=== PATIENT | male | born 1940 | race Caucasian/White ===

== ENCOUNTER 2016-10-13 10:29 | Inpatient (IN) | payer MEDICARE ==
[2016-10-13 10:37] VITALS: BMI 24.4
[2016-10-13 11:59] LABS: BASO % 1.2 % (0.0-2.0); EOS % 0.1 % (0.0-4.0); HEMATOCRIT 45.4 % (35.0-51.0); LYMPH # 1.2 K/uL (1.0-4.3); LYMPH % 28.7 % (20.0-40.0); MEAN CELL VOLUME 75.7 fL (80.0-94.0); MEAN CORPUSCULAR HEMOGLOBIN 23.8 pg (27.0-31.0); MEAN CORPUSCULAR HGB CONC 31.4 g/dL (33.0-37.0); MEAN PLATELET VOLUME 8.1 fL (7.2-11.7); MONO # 0.4 K/uL (0.0-0.8); MONO % 10.8 % (0.0-10.0); NRBC % 0.2 % (0.0-2.0); WHITE BLOOD COUNT 4.1 K/uL (4.8-10.8)
--- NOTE | 2016-10-13 12:08 | CT ---
PROCEDURE: CT HEAD WITHOUT CONTRAST. HISTORY: syncope COMPARISON: None available. TECHNIQUE: Axial computed tomography images were obtained through the head/brain without intravenous contrast. Radiation dose: Total exam DLP = 1123.83 mGy-cm. This CT exam was performed using one or more of the following dose reduction techniques: Automated exposure control, adjustment of the mA and/or kV according to patient size, and/or use of iterative reconstruction technique. FINDINGS: HEMORRHAGE: No intracranial hemorrhage. BRAIN: Diffuse atrophy with prominence of the ventricles and sulci noted. No mass effect or edema. Intracranial atherosclerosis. Encephalomalacia within the left basal ganglia/caudate nucleus. VENTRICLES: No hydrocephalus. CALVARIUM: Unremarkable. PARANASAL SINUSES: Mucosal thickening of the ethmoid air cells. MASTOID AIR CELLS: Unremarkable as visualized. No inflammatory changes. OTHER FINDINGS: Minimal opacification within bilateral external auditory canals, likely cerumen. 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 Please note that MRI with diffusion imaging is more sensitive in the detection of acute ischemic event.
[2016-10-13 12:27] LABS: POTASSIUM 3.9 mmol/L (3.6-5.2)
[2016-10-13 12:30] LABS: BILIRUBIN,TOTAL 0.4 mg/dL (0.2-1.3); CALCIUM 7.9 mg/dl (8.6-10.4)
[2016-10-13 12:42] LABS: TROPONIN I 0.063 ng/mL (0.00-0.120)
--- NOTE | 2016-10-13 13:06 | RAD ---
PROCEDURE: CHEST RADIOGRAPH, 1 VIEW HISTORY: r/o infiltrate COMPARISON: None available. FINDINGS: LUNGS: Poor inspiration with low lung volumes, mild crowded bronchovascular markings and mild bibasilar atelectasis. PLEURA: No pneumothorax or pleural fluid seen. CARDIOVASCULAR: Heart size is upper limits of normal. OSSEOUS STRUCTURES: No significant abnormalities. VISUALIZED UPPER ABDOMEN: Normal. OTHER FINDINGS: None. IMPRESSION: Poor inspiration with low lung volumes, mild crowded bronchovascular markings and mild bibasilar atelectasis.
--- NOTE | 2016-10-13 13:18 | C.PDOC ---
History Of Present Illness 75 y/o male presents to the ED via ALS for evaluation s/p syncopal episode today. He states that he was standing when he suddenly woke up on the floor. Syncope was reportedly witnessed by several people. Patient denies any symptoms prior to episode. No chest pain or shortness of breath at any time. Patient is currently asymptomatic in the ED. He notes similar episode 6 months ago and states he did not seek medical attention at that time. Denies any fever, nausea , vomiting, headache, dizziness, vision changes, or other complaints. Chief Complaint (Nursing): Syncope History Per: Patient History/Exam Limitations: no limitations Onset/Duration Of Symptoms: Sudden Onset Current Symptoms Are (Timing): Better Number Of Syncopal Episodes: 1 Activity At Onset Of Symptoms: Standing Associated Symptoms Preceding Syncopal Episode: No Predromal Symptoms (Sudden Onset) Seizure Or Post-ictal Symptoms: None Fall Associated With With Symptoms: Yes Recent travel outside of the [place]: No Past Medical History Reviewed: Historical Data, Nursing Documentation, Vital Signs Vital Signs: Last Vital Signs Temp 98.1 F 10/13/16 15:46 Pulse 63 10/13/16 15:46 Resp 20 10/13/16 15:46 BP 145/71 10/13/16 15:46 Pulse Ox 97 10/13/16 15:46 - Medical History PMH: Seizures (x 1 6 months ago) Surgical History: No Surg Hx Family History: States: Unknown Family Hx - Social History Hx Tobacco Use: No Hx Alcohol Use: No Hx Substance Use: No - Immunization History Hx Tetanus Toxoid Vaccination: No Hx Influenza Vaccination: No Hx Pneumococcal Vaccination: No Review Of Systems Except As Marked, All Systems Reviewed And Found Negative. Constitutional: Negative for: Fever Eyes: Negative for: Vision Change Cardiovascular: Negative for: Chest Pain Respiratory: Negative for: Shortness of Breath Gastrointestinal: Negative for: Nausea, Vomiting Neurological: Positive for: Other (syncope). Negative for: Headache, Dizziness Physical Exam - Physical Exam Appears: Non-toxic, No Acute Distress Skin: Normal Color, Warm, Dry, No Ecchymosis Head: Atraumatic, Normacephalic, No Abrasion, No Laceration Eye(s): bilateral: Normal Inspection, PERRL, EOMI Nose: Normal, No Epistaxis Neck: Normal ROM, No Midline Cervical Tenderness, Supple Chest: Symmetrical, No Tenderness Cardiovascular: Rhythm Regular Respiratory: Normal Breath Sounds, No Rales, No Rhonchi, No Wheezing Gastrointestinal/Abdominal: Normal Exam, Soft, No Tenderness Back: Normal Inspection, No Vertebral Tenderness Extremity: Normal ROM, No Tenderness, No Deformity, No Swelling Extremity: Bilateral: Atraumatic Neurological/Psych: Oriented x3, Normal Speech, Normal Cognition, Normal Cranial Nerves (II-XII intact), Normal Motor, Normal Sensation Gait: Steady ED Course And Treatment - Laboratory Results Result Diagrams: 10/13/16 11:55 10/13/16 11:55 ECG: Interpreted By Me ECG Rhythm: Sinus Rhythm ECG Interpretation: Normal Interpretation Of ECG: normal axis, normal intervals Rate From EC (bpm) O2 Sat by Pulse Oximetry: 97 (ra) Pulse Ox Interpretation: Normal - Other Rad Chest X-Ray X-Ray: Viewed By Me, Read By Radiologist (Azar Johnson MD) Interpretation: IMPRESSION: Poor inspiration with low lung volumes, mild crowded bronchovascular markings and mild bibasilar atelectasis. - CT Scan/US CT Head Other Rad Studies (CT/US): Read By Radiologist (Saba Sethi MD), Radiology Report Reviewed CT/US Interpretation: FINDINGS: HEMORRHAGE: No intracranial hemorrhage. BRAIN : Diffuse atrophy with prominence of the ventricles and sulci noted. No mass effect or edema. Intracranial atherosclerosis. Encephalomalacia within the left basal ganglia/caudate nucleus. VENTRICLES: No hydrocephalus. CALVARIUM: Unremarkable. PARANASAL SINUSES: Mucosal thickening of the ethmoid air cells. MASTOID AIR CELLS: Unremarkable as visualized. No inflammatory changes. OTHER FINDINGS: Minimal opacification within bilateral external auditory canals, likely cerumen. 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 Please note that MRI with diffusion imaging is more sensitive in the detection of acute ischemic event. Progress Note: CT Head, CXR, EKG, Blood Work, Urinalysis. Disposition - Disposition Disposition: HOSPITALIZED Disposition Time: 13:45 Condition: STABLE - Clinical Impression Clinical Impression: Syncope - Scribe Statement The provider has reviewed the documentation as recorded by the Scribe (Mary Wynn) Provider Attestation: All medical record entries made by the Scribe were at my direction and personally dictated by me. I have reviewed the chart and agree that the record accurately reflects my personal performance of the history, physical exam, medical decision making, and the department course for this patient. I have also personally directed, reviewed, and agree with the discharge instructions and disposition.
[2016-10-13 14:32] LABS: RBC URINE 2 /hpf (0-3); URINE BACTERIA RARE (<OCC); URINE BILIRUBIN NEGATIVE (NEGATIVE); URINE BLOOD 1+ (NEGATIVE); URINE COLOR Yellow (YELLOW); URINE GLUCOSE (UA) NORMAL (Normal); URINE KETONE NEGATIVE (NEGATIVE); URINE LEUKOCYTE ESTERASE NEG Leu/uL (Negative); URINE PROTEIN 2+ mg/dL (NEGATIVE); URINE UROBILINOGEN NORMAL mg/dL (0.2-1.0); WBC URINE 1 /hpf (0-5)
[2016-10-13] MEDS ORDERED: guaiFENesin 100 mg/5 ml Syrup UD PO PRN (19:02)
[2016-10-13] MEDS: (Novolin R) Insulin Human Regular 100 units/ml vial SC SCH (21:44)
[2016-10-14] MEDS: (Novolin R) Insulin Human Regular 100 units/ml vial SC SCH ×4 (08:21→21:16)
--- NOTE | 2016-10-14 10:26 | CON ---
DATE: 10/14/2016 REASON FOR CONSULTATION: Episode of passing out. HISTORY OF PRESENT ILLNESS: The patient is a 75-year-old male who is being asked for evaluation of e pisode of passing out. The patient said he was standing and having his tea and croissant in a restau rant in hotel when all of a sudden he found himself on the floor. He does not remember what happened . He did not have any chest pain, palpitation or headaches prior to passing out. He has no urinary incontinence or tongue biting. He said a similar episode happened about 6 months ago. He did not se ek any medical attention at that time. Denies any other complaints. REVIEW OF SYSTEMS: Denies any headache, dizziness, chest pain, shortness of breath, abdominal pain, constipation, diarrhea, dysuria, pyuria, cough or sputum production. PAST MEDICAL HISTORY: Includes diabetes mellitus. MEDICATIONS: At home include Isordil, Glucophage, aspirin. ALLERGIES: No known drug allergies. SOCIAL HISTORY: Denies smoking, use of alcohol or illicit drugs. FAMILY HISTORY: Reviewed and noncontributory to case. PHYSICAL EXAMINATION: GENERAL: The patient is an elderly pleasant male lying on the bed, in no acute distress. VITAL SIGNS: His blood pressure is 146/68, heart rate is 54 per minute, breathing at a rate of 16 pe r minute, temperature is 98 degrees Fahrenheit. HEENT: Head is normocephalic, atraumatic. NECK: Supple. There are no carotid bruits. LUNGS: Clear. CARDIOVASCULAR: S1, S2 audible. No murmurs. ABDOMEN: Soft, nontender, bowel sounds are present. NEUROLOGIC EXAMINATION: MENTAL STATUS: The patient is awake, alert, oriented to time, place, person. Speech is fluent. Nam ing and repetition normal. Memory and cognition are intact. CRANIAL NERVES: Pupils are 4 mm bilaterally, reactive to light. Visual ramos are full. Extraocula r movements are intact. There is no facial asymmetry. Palate is upgoing bilaterally and tongue is m idline. MOTOR: Tone is normal. Power is 5/5 bilaterally in all extremities. Reflexes +1 and symmetrical. Plantars downgoing bilaterally. LABORATORY DATA: Labs reviewed, shows WBC of 4.1, hemoglobin 14.3, hematocrit 45.4 and platelets of 185. Sodium is 135, potassium 3.9, chloride 99, carbon dioxide content 24, BUN of 51, creatinine of 1.8 and glucose of 202. He has had a CT scan of the head done which shows encephalomalacia within th e left basal ganglia/caudate nucleus. Otherwise, unremarkable CT scan of the head. IMPRESSION: Syncope, rule out seizure versus cardiac arrhythmia. RECOMMENDATIONS: 1. The patient to have MRI of the brain without contrast. 2. The encephalomalacia in the basal ganglia appears to be from old stroke. Agree with using aspiri n for now. 3. The patient to have an electroencephalogram. 4. The patient to have cardiac monitoring to rule out any cardiac arrhythmias. 5. If patient is discharged, then EEG may be done as outpatient. Thank you for the opportunity to participate in the care of this patient. Geoff Jiménez MD cc: [id number] TT: 10/14/2016 10:25:43 Confirmation # [id number] Dictation # [id number] robert
[2016-10-14] MEDS: Azithromycin 500 MG in Sodium Chloride 0.9% 250 ML IVPB SCH (10:50)
[2016-10-14] MEDS: Sodium Chloride 0.9% 1,000 ML IV SCH ×2 (10:51→22:51)
--- NOTE | 2016-10-14 12:38 | MRI ---
PROCEDURE: MRI BRAIN WITHOUT CONTRAST HISTORY: syncope COMPARISON: Comparison made with CT scan of the brain 10/13/2016. TECHNIQUE: Multiplanar, multisequence MR images of the brain were obtained without intravenous contrast enhancement. FINDINGS: HEMORRHAGE: No acute parenchymal, subarachnoid nor extra-axial hemorrhage. No hemosiderin deposition identified on diffusion-weighted sequence. DWI: No evidence of an acute or early subacute infarction. BRAIN PARENCHYMA: Re- demonstrated is a chronic appearing infarct along the anterior margin of the left putamen with what appears represent some involvement of the superior aspect of the left caudate head. Moderate generalized volume loss VENTRICLES: Ex vacuo dilatation of the ventricles due to volume loss however no evidence of obstructive hydrocephalus. CRANIUM: Unremarkable. ORBITS: Orbits and contents grossly unremarkable. PARANASAL SINUSES/MASTOIDS: Mild mucosal thickening again seen within the ethmoid air complex extending superiorly into the frontal sinus. Minor mucosal thickening both maxillary antra left greater than right. And sphenoid sinuses partial opacification of 1 or 2 left inferior posterior mastoid air cells. . There also also appears to be some minor opacification of multiple right mastoid air cells. VASCULAR SYSTEM: Visualized major vascular flow voids at skull base are patent. OTHER FINDINGS: None. IMPRESSION: No acute intracranial hemorrhage or infarct. 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 Moderate generalized volume loss.
--- NOTE | 2016-10-14 13:30 | CARD ---
APPROVED REPORT EXAM: Two-dimensional and M-mode echocardiogram with Doppler and color Doppler. Other Information Quality : AverageRhythm : NSR INDICATION Syncope M-Mode DIMENSIONS RVDd1.85 (2.1-3.2cm)Left Atrium (MM)3.44 (2.5-4.0cm) IVSd1.30 (0.7-1.1cm)Aortic Root3.44 (2.2-3.7cm) LVDd5.01 (4.0-5.6cm)Aortic Cusp Exc.1.37 (1.5-2.0cm) PWd1.17 (0.7-1.1cm)FS (%) 42 % LVDs2.93 (2.0-3.8cm)LVEF (%)72 (>50%) Mitral Valve MV E Jmigykub78.7cm/sMV A Wtzeprxp99.1cm/sE/A ratio0.7 TDI E/Lateral E'0.0E/Medial E'0.0 Tricuspid Valve TR Peak Nnlqsgss994qc/sTR Peak Gr.69mdNrFFEQ78gyMn LEFT VENTRICLE The left ventricle is normal size. There is normal left ventricular wall thickness. The left ventricular function is normal. The left ventricular ejection fraction is within the normal range. No regional wall motion abnormalities noted. Transmitral Doppler flow pattern is Grade I-abnormal relaxation pattern. No left ventricle thrombus noted on this study. There is no ventricular septal defect visualized. There is no left ventricular aneurysm. There is no mass noted in the left ventricle. RIGHT VENTRICLE The right ventricle is normal size. There is normal right ventricular wall thickness. The right ventricular systolic function is normal. ATRIA The left atrium size is normal. The right atrium size is normal. The interatrial septum is intact with no evidence for an atrial septal defect. AORTIC VALVE The aortic valve is normal in structure and function. There is mild aortic regurgitation. There is no aortic valvular stenosis. There is no aortic valvular vegetation. MITRAL VALVE The mitral valve is normal in structure and function. Mitral annular calcification is mild. There is no evidence of mitral valve prolapse. There is no mitral valve stenosis. There is no mitral valve regurgitation noted. TRICUSPID VALVE The tricuspid valve is normal in structure and function. There is mild tricuspid regurgitation. Right ventricular systolic pressure is estimated at 30-40 mmHg. There is no tricuspid valve prolapse or vegetation. There is no tricuspid valve stenosis. PULMONIC VALVE The pulmonary valve is normal in structure and function. There is no pulmonic valvular regurgitation. There is no pulmonic valvular stenosis. GREAT VESSELS The aortic root is normal in size. The ascending aorta is normal in size. The pulmonary artery is normal. The IVC is normal in size and collapses >50% with inspiration. PERICARDIAL EFFUSION The pericardium appears normal. There is no pleural effusion. <Conclusion> The left ventricular function is normal. The left ventricular ejection fraction is within the normal range. No regional wall motion abnormalities noted. There is mild aortic regurgitation. There is mild tricuspid regurgitation. Right ventricular systolic pressure is estimated at 30-40 mmHg.
--- NOTE | 2016-10-14 18:20 | CP.PCM.CON ---
History of Present Illness - History of Present Illness History of Present Illness: Reason For Consultation Syncope History Of Present Illness 75 y/o male presents to the ED via ALS for evaluation s/p syncopal episode today. He states that he was standing when he suddenly woke up on the floor. Syncope was reportedly witnessed by several people. He notes similar episode 6 months ago and states he did not seek medical attention at that time. Denies any fever, nausea, vomiting, headache, dizziness, vision changes, or other complaints. Chief Complaint (Nursing): Syncope History Per: Patient History/Exam Limitations: no limitations Onset/Duration Of Symptoms: Sudden Onset Current Symptoms Are (Timing): Better Number Of Syncopal Episodes: 1 Activity At Onset Of Symptoms: Standing Associated Symptoms Preceding Syncopal Episode: No Predromal Symptoms (Sudden Onset) Seizure Or Post-ictal Symptoms: None Fall Associated With With Symptoms: Yes Recent travel outside of the [place]: No - Medical History PMH: Seizures (x 1 6 months ago) Surgical History: No Surg Hx Family History: States: Unknown Family Hx - Social History Hx Tobacco Use: No Hx Alcohol Use: No Hx Substance Use: No - Immunization History Hx Tetanus Toxoid Vaccination: No Hx Influenza Vaccination: No Hx Pneumococcal Vaccination: No Review Of Systems Except As Marked, All Systems Reviewed And Found Negative. Constitutional: Negative for: Fever Eyes: Negative for: Vision Change Cardiovascular: Negative for: Chest Pain Respiratory: Negative for: Shortness of Breath Gastrointestinal: Negative for: Nausea, Vomiting Neurological: Positive for: Other (syncope). Negative for: Headache, Dizziness Physical Exam - Physical Exam Appears: Non-toxic, No Acute Distress Skin: Normal Color, Warm, Dry, No Ecchymosis Head: Atraumatic, Normacephalic, No Abrasion, No Laceration Eye(s): bilateral: Normal Inspection, PERRL, EOMI Nose: Normal, No Epistaxis Neck: Normal ROM, No Midline Cervical Tenderness, Supple Chest: Symmetrical, No Tenderness Cardiovascular: Rhythm Regular Respiratory: Normal Breath Sounds, No Rales, No Rhonchi, No Wheezing Gastrointestinal/Abdominal: Normal Exam, Soft, No Tenderness Back: Normal Inspection, No Vertebral Tenderness Extremity: Normal ROM, No Tenderness, No Deformity, No Swelling Extremity: Bilateral: Atraumatic Neurological/Psych: Oriented x3, Normal Speech, Normal Cognition, Normal Cranial Nerves (II-XII intact), Normal Motor, Normal Sensation Gait: Steady Past Patient History - Past Medical History & Family History Past Medical History?: Yes - Past Social History Smoking Status: Former Smoker - CARDIAC Hx Cardiac Disorders: No - PULMONARY Hx Respiratory Disorders: No - NEUROLOGICAL Hx Neurological Disorder: Yes Hx Seizures: Yes (x 1 6 months ago) - HEENT Hx HEENT Problems: No - RENAL Hx Chronic Kidney Disease: No - ENDOCRINE/METABOLIC Hx Endocrine Disorders: Yes Hx Diabetes Mellitus Type 2: Yes - HEMATOLOGICAL/ONCOLOGICAL Hx Blood Disorders: No - INTEGUMENTARY Hx Dermatological Problems: Yes Other/Comment: several skin tags on back - MUSCULOSKELETAL/RHEUMATOLOGICAL Hx Musculoskeletal Disorders: Yes Hx Falls: Yes (prev. syncopal episodes) Other/Comment: L knee pain when ambulating - GASTROINTESTINAL Hx Gastrointestinal Disorders: No - GENITOURINARY/GYNECOLOGICAL Hx Genitourinary Disorders: No - PSYCHIATRIC Hx Psychophysiologic Disorder: No Hx Substance Use: No - SURGICAL HISTORY Hx Surgeries: Yes Hx Cardiac Catheterization: Yes (3 stents) - ANESTHESIA Hx Anesthesia: No Meds Allergies/Adverse Reactions: Allergies Allergy/AdvReac Type Severity Reaction Status Date / Time No Known Allergies Allergy Verified 10/13/16 10:35 - Medications Medications: Current Medications Aspirin (Ecotrin) 81 mg PO DAILY [facility] Last Admin: 10/14/16 09:26 Dose: 81 mg Heparin Sodium (Porcine) (Heparin) 5,000 units SC Q12 [facility] Last Admin: 10/14/16 09:28 Dose: 5,000 units Sodium Chloride (Sodium Chloride 0.9%) 1,000 mls @ 80 mls/hr IV .[id number] [facility] Last Admin: 10/14/16 10:51 Dose: 80 mls/hr Azithromycin 500 mg/ Sodium (Chloride) 250 mls @ 167 mls/hr IVPB Q24H [facility] Last Admin: 10/14/16 10:50 Dose: 167 mls/hr Insulin Human Regular (Novolin R) 0 unit SC ACHS [facility] PRN Reason: Protocol Last Admin: 10/14/16 13:06 Dose: 2 unit Isosorbide Dinitrate (Isordil) 5 mg PO BID [facility] Last Admin: 10/14/16 10:50 Dose: 5 mg Pneumococcal Polyvalent Vaccine (Pneumovax 23 Vaccine) 0.5 ml IM .ONCE ONE Stop: 10/15/16 10:01 Results - Vital Signs Recent Vital Signs: Last Vital Signs Temp 98.1 F 10/14/16 15:44 Pulse 57 L 10/14/16 16:39 Resp 20 10/14/16 15:44 BP 128/67 10/14/16 15:44 Pulse Ox 95 10/14/16 15:44 - Labs Result Diagrams: 10/13/16 11:55 10/13/16 11:55 Labs: Laboratory Results - last 24 hr 10/13/16 10/13/16 10/14/16 19:34 21:37 02:00 POC Glucose (mg/dL) 201 H Total Creatine Kinase 177 H 163 CK-MB (Mass) 2.89 2.97 Troponin I, Quant 0.0510 0.0490 10/14/16 10/14/16 10/14/16 06:02 11:00 16:54 POC Glucose (mg/dL) 177 H 247 H 219 H Total Creatine Kinase CK-MB (Mass) Troponin I, Quant Assessment & Plan (1) Syncope Assessment and Plan: R/O Orthostatic hypotension, Structural diseases ECHO: Normal EF and no major valve issues cardiac enzymes negative Check Carotid and Tilt Dr. Orozco to perform Tilt table test Status: Acute (2) CAD (coronary artery disease) Assessment and Plan: H/O CAD and stents as per the patient Stress test on Sunday Status: Acute
[2016-10-15] MEDS: Sodium Chloride 0.9% 1,000 ML IV SCH ×2 (06:17→23:37)
[2016-10-15 06:19] LABS: BASO % 0.5 % (0.0-2.0); EOS # 0.1 K/uL (0.0-0.7); EOS % 2.2 % (0.0-4.0); HEMATOCRIT 41.9 % (35.0-51.0); LYMPH # 1.6 K/uL (1.0-4.3); LYMPH % 49.1 % (20.0-40.0); MEAN CELL VOLUME 75.8 fL (80.0-94.0); MEAN CORPUSCULAR HEMOGLOBIN 23.8 pg (27.0-31.0); MEAN CORPUSCULAR HGB CONC 31.3 g/dL (33.0-37.0); MEAN PLATELET VOLUME 8.2 fL (7.2-11.7); MONO # 0.3 K/uL (0.0-0.8); MONO % 9.7 % (0.0-10.0); NRBC % 0.1 % (0.0-2.0); RED CELL DISTRIBUTION WIDTH 16.8 % (11.5-14.5); WHITE BLOOD COUNT 3.3 K/uL (4.8-10.8)
[2016-10-15 06:35] LABS: CHLORIDE 103 mmol/L (98-107); SODIUM 139 mmol/L (132-148)
[2016-10-15 06:38] LABS: CARBON DIOXIDE 26 mmol/L (22-30); GFR AFRICAN-AMERICAN > 60
[2016-10-15 06:39] LABS: BLOOD UREA NITROGEN 30 mg/dL (9-20); GLUCOSE,RANDOM 158 mg/dL (75-110)
[2016-10-15] MEDS: (Novolin R) Insulin Human Regular 100 units/ml vial SC SCH ×3 (08:22→19:26)
[2016-10-15] MEDS ORDERED: Pneumococcal 23-Valent Vaccine IM ONE (10:00)
[2016-10-15] MEDS: Azithromycin 500 MG in Sodium Chloride 0.9% 250 ML IVPB SCH (13:45)
--- NOTE | 2016-10-15 20:28 | CP.PCM.PN ---
Subjective - Date & Time of Evaluation Date of Evaluation: 10/15/16 Time of Evaluation: 10:20 - Subjective Subjective: Patient for stress test and Tilt test in am NPO after MN except meds Objective - Vital Signs/Intake and Output Vital Signs (last 24 hours): Temp Pulse Resp BP Pulse Ox 97.9 F 56 L 20 147/71 98 10/15/16 16:01 10/15/16 16:01 10/15/16 16:01 10/15/16 16:01 10/15/16 16:01 - Medications Medications: Current Medications Aspirin (Ecotrin) 81 mg PO DAILY [facility] Last Admin: 10/15/16 09:13 Dose: 81 mg Heparin Sodium (Porcine) (Heparin) 5,000 units SC Q12 [facility] Last Admin: 10/15/16 09:13 Dose: 5,000 units Sodium Chloride (Sodium Chloride 0.9%) 1,000 mls @ 80 mls/hr IV .[id number] [facility] Last Admin: 10/15/16 06:17 Dose: 80 mls/hr Azithromycin 500 mg/ Sodium (Chloride) 250 mls @ 167 mls/hr IVPB Q24H [facility] Last Admin: 10/15/16 13:45 Dose: 167 mls/hr Insulin Human Regular (Novolin R) 0 unit SC ACHS [facility] PRN Reason: Protocol Last Admin: 10/15/16 19:26 Dose: 1 unit Isosorbide Dinitrate (Isordil) 5 mg PO BID [facility] Last Admin: 10/15/16 18:54 Dose: 5 mg - Labs Labs: 10/15/16 06:00 10/15/16 06:00 Assessment and Plan (1) Syncope Status: Acute (2) CAD (coronary artery disease) Status: Acute
--- NOTE | 2016-10-16 07:14 | HP ---
The patient is a 75-year-old male admitted to the hospital with chief complaint of syncope. The shilpa ent was standing in a restaurant, fell down to the floor, loss of conscious. No precipitating sympto ms. No biting of the tongue. No urinary or fecal incontinence. The patient had a similar episode 6 months ago when he was in [place]. The patient had stents a few years back. PHYSICAL EXAMINATION: GENERAL: The patient is awake, alert, oriented. VITAL SIGNS: Temperature 98, pulse 90. HEENT: Within normal limits. NECK: Supple. CHEST: Symmetrical. HEART: Regular. ABDOMEN: Soft. EXTREMITIES: No edema. The patient suffers from syncopal episode, rule out cardiac arrhythmia, rule out bedrest, cardi ac monitoring, cardiology evaluation. Yunior Luna MD cc: [id number] TT: 10/15/2016 09:00:24 en
--- NOTE | 2016-10-16 07:27 | PN ---
DATE: 10/15/2016 The patient is getting supportive care. No syncope. For tilt table test tomorrow. Yunior Luna MD cc: [id number] TT: 10/15/2016 15:51:00 Confirmation # [id number] Dictation # [id number] en
[2016-10-16] MEDS: (Novolin R) Insulin Human Regular 100 units/ml vial SC SCH ×5 (07:40→21:31)
--- NOTE | 2016-10-16 10:57 | CP.PCM.PN ---
Subjective - Date & Time of Evaluation Date of Evaluation: 10/16/16 Time of Evaluation: 10:00 - Subjective Subjective: Medicine Note- Dr. Garland's service Patient was seen and examined at bedside. Patient reported no acute complaints, no events overnight, per nursing. Objective - Vital Signs/Intake and Output Vital Signs (last 24 hours): Temp Pulse Resp BP Pulse Ox 98.3 F 63 18 163/74 H 96 10/16/16 07:05 10/16/16 07:05 10/16/16 07:05 10/16/16 07:05 10/16/16 07:05 - Medications Medications: Current Medications Aspirin (Ecotrin) 81 mg PO DAILY [facility] Last Admin: 10/15/16 09:13 Dose: 81 mg Heparin Sodium (Porcine) (Heparin) 5,000 units SC Q12 [facility] Last Admin: 10/15/16 21:26 Dose: 5,000 units Sodium Chloride (Sodium Chloride 0.9%) 1,000 mls @ 80 mls/hr IV .[id number] [facility] Last Admin: 10/15/16 23:37 Dose: 80 mls/hr Azithromycin 500 mg/ Sodium (Chloride) 250 mls @ 167 mls/hr IVPB Q24H [facility] Last Admin: 10/15/16 13:45 Dose: 167 mls/hr Insulin Human Regular (Novolin R) 0 unit SC ACHS [facility] PRN Reason: Protocol Last Admin: 10/16/16 07:40 Dose: 1 unit Isosorbide Dinitrate (Isordil) 5 mg PO BID [facility] Last Admin: 10/15/16 18:54 Dose: 5 mg - Constitutional Appears: Non-toxic, No Acute Distress - Head Exam Head Exam: ATRAUMATIC, NORMAL INSPECTION, NORMOCEPHALIC - Eye Exam Pupil Exam: Fixed, NORMAL ACCOMODATION - ENT Exam ENT Exam: Mucous Membranes Moist - Respiratory Exam Respiratory Exam: Clear to Ausculation Bilateral, NORMAL BREATHING PATTERN. absent: Prolonged Expiratory Phase, Rales, Rhonchi, Wheezes - Cardiovascular Exam Cardiovascular Exam: REGULAR RHYTHM, +S1, +S2 - GI/Abdominal Exam GI & Abdominal Exam: Soft, Normal Bowel Sounds. absent: Tenderness, Diminished Bowel Sounds, Hypoactive Bowel Sounds - Extremities Exam Extremities Exam: Normal Capillary Refill, Normal Inspection - Neurological Exam Neurological Exam: Alert, Awake, Oriented x3 - Psychiatric Exam Psychiatric exam: Normal Affect, Normal Mood - Skin Skin Exam: Dry, Intact, Normal Color, Warm Assessment and Plan - Assessment and Plan (Free Text) Assessment: Syncope Consult Cardio- Dr. Robledo Consult Neuro- Dr. 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 Moderate generalized volume loss. Abnormal CXR CXR- 10/13/16- Poor inspiration with low lung volumes, mild crowded bronchovascular markings and mild bibasilar atelectasis. Continue Azithromycin 500mg IVPB Q24h (started 10/14/16) Diabetes RISS accucheck Prophylactic Measure Heparin 5000U SC Q12h Pepcid 20mg PO BID SCDs PT Eval
[2016-10-16] MEDS: Azithromycin 500 MG in Sodium Chloride 0.9% 250 ML IVPB SCH (12:55)
--- NOTE | 2016-10-16 14:44 | VASCLAB ---
PROCEDURE: HISTORY: syncope COMPARISON: None available. TECHNIQUE: Grayscale and duplex Doppler evaluation of the cervical carotid and vertebral arteries were performed. The common carotid, carotid bifurcations and cervical Internal Carotid Artery (ICA) and proximal External Carotid Artery (ECA) were evaluated. The vertebral arteries were evaluated for gross patency and flow direction. Report prepared by Melba Oquendo RDCS, S FINDINGS: RIGHT CAROTID ARTERIES: 1. Common Carotid Artery: No significant focal plaque formation of the right common carotid artery. Maximum Peak Systolic velocity: 73 cm/sec: End-diastolic velocity 0 cm/sec. 2. Carotid Bifurcation: plaque formation. Maximum Peak Systolic velocity: 32 cm/sec: End-diastolic velocity 0 cm/sec. 3. Internal Carotid Artery: Plaque description: 3.1. Proximal Segment: Peak systolic velocity 25 cm/sec: End-diastolic velocity 6 cm/sec - % stenosis 3.2. Middle Segment: Peak systolic velocity 43 cm/sec: End-diastolic velocity 10 cm/sec - % stenosis 3.3. Distal Segment: Peak systolic velocity 42 cm/sec: End-diastolic velocity 10 cm/sec - % stenosis 4. External Carotid Artery: No significant focal plaque formation. Peak systolic velocity 68 cm/sec 5. ICA/CCA Ratio: 0.7 LEFT CAROTID ARTERIES: 1. Common Carotid Artery: No significant focal plaque formation of the left common carotid artery. Maximum Peak Systolic velocity: 94 cm/sec: End-diastolic velocity 0 cm/sec. 2. Carotid Bifurcation: plaque formation. Maximum Peak Systolic velocity: 61 cm/sec: End-diastolic velocity 13 cm/sec. 3. Internal Carotid Artery: Plaque description: 3.1. Proximal Segment: Peak systolic velocity 58 cm/sec: End-diastolic velocity 11 cm/sec - % stenosis 3.2. Middle Segment: Peak systolic velocity 51 cm/sec: End-diastolic velocity 11 cm/sec - % stenosis 3.3. Distal Segment: Peak systolic velocity 64 cm/sec: End-diastolic velocity 11 cm/sec - % stenosis 4. External Carotid Artery: No significant focal plaque formation. Peak systolic velocity 89 cm/sec 5. ICA/CCA Ratio: 0.9 VERTEBRAL ARTERIES: 1. Right Vertebral Artery: The right vertebral artery flow direction is antegrade. 2. Left Vertebral Artery: The left vertebral artery flow direction is antegrade. OTHER FINDINGS: 1. Right Brachial Blood pressure: 132 mmHg. 2. Left Brachial Blood pressure: 126 mmHg. IMPRESSION: RIGHT: Duplex scan does not suggest hemodynamically significant stenosis of the right extracranial carotid arteries. LEFT: Duplex scan does not suggest hemodynamically significant stenosis of the left extracranial carotid arteries.
[2016-10-16] MEDS: Sodium Chloride 0.9% 1,000 ML IV SCH (16:40)
--- NOTE | 2016-10-16 20:59 | CARD ---
APPROVED REPORT Protocol: PHARMACOLOGICAL Test Type: LEXISCAN Test Indications: SYNCOPE Target HR: 144 bpm Resting ECG: normal Resting Heart Rate: 63 bpm Resting Blood Pressure: 118/78mmHg submaximum (85%): 122 bpm TEST SUMMARY [id number].08:[id number]/78.0. INFUSIONDOSE 100:300.00.01.066/.0. [id number]/78.0. PROCEDURE Pharmacologic stress testing was performed using 0.4mg per 5ml of regadenoson given intravenously over 7-10 seconds. POST EXERCISE Reason for Termination: LEXISCAN FUSION ENDED Target HR: No Max HR: 66 bpm 66% of Maximum Predicted HR: 144 bpm Exercise duration: 00:30 min:sec, 0 Stage Exercise capacity: 1.0METs Max Blood Pressure: 120/78mmHg Chest Pain: Yes, Angina index: 0 Arrhythmia: Yes, ST Change: Yes, Deviation: 0 mm INTERPRETATION Stress EKG Conclusion: NL LovejuiceISCAN NUCLEAR PENDING 120 EXAM: Myocardial Perfusion STRESS/REST Imaging Protocol The imaging protocol used to acquire images was Stress Tc-99m/rest Tc-99m 1 day Rest Spect myocardial perfusion imaging was performed in supine position 45 minutes following the injection of 32.4 mCi of Tc-99 Myoview. Gated Stress Spect was performed 45 minutes after intravenous 12.8 mCi Tc-99 Myoview injection. The images were gated to evaluate regional wall motion and calculate ventricular ejection fraction.Images were reconstructed using backfilter projection method in short horizontal and verticle long axis. Spect slices were generated. RESTING DATA LCC761.83raFK9.90L/min ESV37.00mlMyocardial Siou300.00g Av. Heart Rate56.00bpm EF65.00% STRESS DATA GHC797.78xvRW9.70L/min ESV40.00mlMyocardial Atnr248.00g EF63.00% Regional WT score at stress:0.00 Regional WM score at stress:0.00 Summed WT score at stress:13.00 Av. Heart Rate67.00bpmSummed WM score at stress:0.00 LV Perf. Quant 17 Seg. SSS0.00 17 Seg. SRS1.00 17 Seg. SDS0.00 Stress Defect Extent (% LAD)0.00Rest Defect Extent (% LAD)0.00Rev. Defect Extent (% LAD)0.00 Stress Defect Extent (% LCX)0.00Rest Defect Extent (% LCX)7.50Rev. Defect Extent (% LCX)0.00 Stress Defect Extent (% RCA)0.00Rest Defect Extent (% RCA)0.00Rev. Defect Extent (% RCA)0.00 Stress Defect Extent (% MILA)0.00Rest Defect Extent (% MILA)1.70Rev. Defect Extent (% MILA)0.00 Other Information Quality:Good Overall Exercise Capacity: Good IMPRESSION Normal Myocardial Perfusion exercise stress study Global LV Function: Normal Stress Test Summary: Normal LV Perfusion Summary: Normal Metabolism/Perfusion There are no defects. Conclusion 1. The stress and resting images show normal perfusion.
--- NOTE | 2016-10-16 22:41 | CP.PCM.PN ---
Subjective - Date & Time of Evaluation Date of Evaluation: 10/16/16 Time of Evaluation: 20:30 - Subjective Subjective: Patient stress test, Tilt, carotids and ECHO unremarkable Eiology of syncope unclear Will do cardiac cath (Patient h/o of multiple stents) Review Of Systems Except As Marked, All Systems Reviewed And Found Negative. Constitutional: Negative for: Fever Eyes: Negative for: Vision Change Cardiovascular: Negative for: Chest Pain Respiratory: Negative for: Shortness of Breath Gastrointestinal: Negative for: Nausea, Vomiting Neurological: Positive for: Other (syncope). Negative for: Headache, Dizziness Physical Exam - Physical Exam Appears: Non-toxic, No Acute Distress Skin: Normal Color, Warm, Dry, No Ecchymosis Head: Atraumatic, Normacephalic, No Abrasion, No Laceration Eye(s): bilateral: Normal Inspection, PERRL, EOMI Nose: Normal, No Epistaxis Neck: Normal ROM, No Midline Cervical Tenderness, Supple Chest: Symmetrical, No Tenderness Cardiovascular: Rhythm Regular Respiratory: Normal Breath Sounds, No Rales, No Rhonchi, No Wheezing Gastrointestinal/Abdominal: Normal Exam, Soft, No Tenderness Back: Normal Inspection, No Vertebral Tenderness Extremity: Normal ROM, No Tenderness, No Deformity, No Swelling Extremity: Bilateral: Atraumatic Neurological/Psych: Oriented x3, Normal Speech, Normal Cognition, Normal Cranial Nerves (II-XII intact), Normal Motor, Normal Sensation Gait: Steady Past Patient History Objective - Vital Signs/Intake and Output Vital Signs (last 24 hours): Temp Pulse Resp BP Pulse Ox 97.7 F 62 20 158/66 H 96 10/16/16 15:09 10/16/16 15:30 10/16/16 15:09 10/16/16 15:09 10/16/16 15:09 - Medications Medications: Current Medications Aspirin (Ecotrin) 81 mg PO DAILY [facility] Last Admin: 10/16/16 12:55 Dose: 81 mg Famotidine (Pepcid) 20 mg PO BID [facility] Last Admin: 10/16/16 17:26 Dose: 20 mg Heparin Sodium (Porcine) (Heparin) 5,000 units SC Q12 [facility] Last Admin: 10/16/16 21:32 Dose: 5,000 units Sodium Chloride (Sodium Chloride 0.9%) 1,000 mls @ 80 mls/hr IV .[id number] [facility] Last Admin: 10/16/16 16:40 Dose: 80 mls/hr Azithromycin 500 mg/ Sodium (Chloride) 250 mls @ 167 mls/hr IVPB Q24H [facility] Last Admin: 10/16/16 12:55 Dose: 167 mls/hr Insulin Human Regular (Novolin R) 0 unit SC ACHS [facility] PRN Reason: Protocol Last Admin: 10/16/16 21:31 Dose: Not Given Isosorbide Dinitrate (Isordil) 5 mg PO BID [facility] Last Admin: 10/16/16 17:26 Dose: 5 mg Assessment and Plan - Assessment and Plan (Free Text) Assessment: (1) Syncope Assessment and Plan: R/O Orthostatic hypotension, Structural diseases ECHO: Normal EF and no major valve issues cardiac enzymes negative Tilt and ECHO unremarkable (2) CAD (coronary artery disease) Assessment and Plan: H/O CAD and stents as per the patient Stress test on Sunday Status: Acute
[2016-10-17] MEDS: Sodium Chloride 0.9% 1,000 ML IV SCH ×2 (06:12→21:05)
[2016-10-17 06:47] LABS: BASO % 0.3 % (0.0-2.0); EOS # 0.1 K/uL (0.0-0.7); EOS % 3.3 % (0.0-4.0); HEMATOCRIT 40.4 % (35.0-51.0); LYMPH # 1.4 K/uL (1.0-4.3); LYMPH % 43.5 % (20.0-40.0); MEAN CELL VOLUME 75.2 fL (80.0-94.0); MEAN CORPUSCULAR HGB CONC 31.9 g/dL (33.0-37.0); MEAN PLATELET VOLUME 8.3 fL (7.2-11.7); MONO # 0.3 K/uL (0.0-0.8); MONO % 9.5 % (0.0-10.0); NRBC % 0.2 % (0.0-2.0); RED CELL DISTRIBUTION WIDTH 16.8 % (11.5-14.5); WHITE BLOOD COUNT 3.2 K/uL (4.8-10.8)
[2016-10-17 06:52] LABS: CHLORIDE 103 mmol/L (98-107)
[2016-10-17 06:53] LABS: POTASSIUM 3.7 mmol/L (3.6-5.2); SODIUM 139 mmol/L (132-148)
[2016-10-17 06:55] LABS: ALKALINE PHOSPHATASE 53 U/L (38-126); AST/SGOT 35 U/L (17-59); BILIRUBIN,TOTAL 0.8 mg/dL (0.2-1.3); BLOOD UREA NITROGEN 12 mg/dL (9-20); CARBON DIOXIDE 28 mmol/L (22-30); GFR AFRICAN-AMERICAN > 60; GLUCOSE,RANDOM 155 mg/dL (75-110); TOTAL PROTEIN 6.4 g/dL (6.3-8.3)
[2016-10-17 06:56] LABS: ALT/SGPT 28 U/L (21-72); CALCIUM 7.6 mg/dl (8.6-10.4)
[2016-10-17] MEDS: (Novolin R) Insulin Human Regular 100 units/ml vial SC SCH ×5 (08:32→21:44)
--- NOTE | 2016-10-17 09:54 | CP.PCM.PN ---
Subjective - Date & Time of Evaluation Date of Evaluation: 10/17/16 Time of Evaluation: 07:20 - Subjective Subjective: Medicine Note- Dr. Garland's service Patient was seen and examined at bedside. Patient reports no acute complaints currently. No events overnight, per nursing. Objective - Vital Signs/Intake and Output Vital Signs (last 24 hours): Temp Pulse Resp BP Pulse Ox 98.5 F 64 18 163/78 H 97 10/17/16 07:15 10/17/16 07:15 10/17/16 07:15 10/17/16 07:15 10/17/16 07:15 Intake and Output: 10/17/16 10/17/16 06:59 18:59 Intake Total 640 Balance 640 - Medications Medications: Current Medications Aspirin (Ecotrin) 81 mg PO DAILY [facility] Last Admin: 10/16/16 12:55 Dose: 81 mg Famotidine (Pepcid) 20 mg PO BID [facility] Last Admin: 10/17/16 09:11 Dose: 20 mg Heparin Sodium (Porcine) (Heparin) 5,000 units SC Q12 [facility] Last Admin: 10/16/16 21:32 Dose: 5,000 units Sodium Chloride (Sodium Chloride 0.9%) 1,000 mls @ 80 mls/hr IV .[id number] [facility] Last Admin: 10/17/16 06:12 Dose: 80 mls/hr Azithromycin 500 mg/ Sodium (Chloride) 250 mls @ 167 mls/hr IVPB Q24H [facility] Last Admin: 10/16/16 12:55 Dose: 167 mls/hr Insulin Human Regular (Novolin R) 0 unit SC ACHS [facility] PRN Reason: Protocol Last Admin: 10/17/16 08:33 Dose: 1 unit Isosorbide Dinitrate (Isordil) 5 mg PO BID [facility] Last Admin: 10/17/16 09:12 Dose: 5 mg Pneumococcal Polyvalent Vaccine (Pneumovax 23 Vaccine) 0.5 ml IM .ONCE ONE Stop: 10/18/16 10:01 - Labs Labs: 10/17/16 06:35 10/17/16 06:35 PT 11.1 SECONDS (9.7-12.2) 10/17/16 07:50 INR 1.0 10/17/16 07:50 APTT 33 SECONDS (21-34) 10/17/16 07:50 - Constitutional Appears: Non-toxic, No Acute Distress - Head Exam Head Exam: ATRAUMATIC, NORMAL INSPECTION, NORMOCEPHALIC - Eye Exam Pupil Exam: NORMAL ACCOMODATION, PERRL - ENT Exam ENT Exam: Mucous Membranes Moist - Respiratory Exam Respiratory Exam: Clear to Ausculation Bilateral, NORMAL BREATHING PATTERN. absent: Prolonged Expiratory Phase, Rales, Rhonchi, Wheezes - Cardiovascular Exam Cardiovascular Exam: REGULAR RHYTHM, +S1, +S2 - GI/Abdominal Exam GI & Abdominal Exam: Soft, Normal Bowel Sounds. absent: Tenderness, Diminished Bowel Sounds, Hypoactive Bowel Sounds - Extremities Exam Extremities Exam: Normal Capillary Refill, Normal Inspection - Neurological Exam Neurological Exam: Alert, Awake, Oriented x3 - Psychiatric Exam Psychiatric exam: Normal Affect, Normal Mood - Skin Skin Exam: Dry, Intact, Normal Color, Warm Assessment and Plan - Assessment and Plan (Free Text) Assessment: Syncope Consult Cardio- Dr. Robledo- NPO after MN for cardiac cath today (hx of multiple stents) Consult Neuro- Dr. Bonita Jiménez Stress test unremarkable Tilt Table test unremarkable Echo- 10/13/16- LV function normal , EF normal. mild aortic and tricuspid regurg. 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 Moderate generalized volume loss. Abnormal CXR CXR- 10/13/16- Poor inspiration with low lung volumes, mild crowded bronchovascular markings and mild bibasilar atelectasis. Continue Azithromycin 500mg IVPB Q24h (started 10/14/16) Diabetes RISS accucheck Prophylactic Measure Heparin 5000U SC Q12h Pepcid 20mg PO BID [facility] PT Eval
[2016-10-17] MEDS: Azithromycin 500 MG in Sodium Chloride 0.9% 250 ML IVPB SCH (10:27)
--- NOTE | 2016-10-17 21:24 | CP.PCM.PN ---
Subjective - Date & Time of Evaluation Date of Evaluation: 10/17/16 Time of Evaluation: 16:30 - Subjective Subjective: Patient cardiac cath got cancelled as [employer] out of service Cath rescheduled for tomorrow Review Of Systems Except As Marked, All Systems Reviewed And Found Negative. Constitutional: Negative for: Fever Eyes: Negative for: Vision Change Cardiovascular: Negative for: Chest Pain Respiratory: Negative for: Shortness of Breath Gastrointestinal: Negative for: Nausea, Vomiting Neurological: Positive for: Other (syncope). Negative for: Headache, Dizziness Physical Exam - Physical Exam Appears: Non-toxic, No Acute Distress Skin: Normal Color, Warm, Dry, No Ecchymosis Head: Atraumatic, Normacephalic, No Abrasion, No Laceration Eye(s): bilateral: Normal Inspection, PERRL, EOMI Nose: Normal, No Epistaxis Neck: Normal ROM, No Midline Cervical Tenderness, Supple Chest: Symmetrical, No Tenderness Cardiovascular: Rhythm Regular Respiratory: Normal Breath Sounds, No Rales, No Rhonchi, No Wheezing Gastrointestinal/Abdominal: Normal Exam, Soft, No Tenderness Back: Normal Inspection, No Vertebral Tenderness Extremity: Normal ROM, No Tenderness, No Deformity, No Swelling Extremity: Bilateral: Atraumatic Neurological/Psych: Oriented x3, Normal Speech, Normal Cognition, Normal Cranial Nerves (II-XII intact), Normal Motor, Normal Sensation Gait: Steady Objective - Vital Signs/Intake and Output Vital Signs (last 24 hours): Temp Pulse Resp BP Pulse Ox 97.9 F 82 20 195/76 H 98 10/17/16 15:07 10/17/16 15:30 10/17/16 15:07 10/17/16 15:07 10/17/16 15:07 Intake and Output: 10/17/16 10/18/16 18:59 06:59 Intake Total 500 Balance 500 - Medications Medications: Current Medications Aspirin (Ecotrin) 81 mg PO DAILY [facility] Last Admin: 10/17/16 10:25 Dose: 81 mg Famotidine (Pepcid) 20 mg PO BID [facility] Last Admin: 10/17/16 17:57 Dose: 20 mg Azithromycin 500 mg/ Sodium (Chloride) 250 mls @ 167 mls/hr IVPB Q24H [facility] Last Admin: 10/17/16 10:27 Dose: 167 mls/hr Insulin Human Regular (Novolin R) 0 unit SC ACHS [facility] PRN Reason: Protocol Last Admin: 10/17/16 17:57 Dose: Not Given Isosorbide Dinitrate (Isordil) 5 mg PO BID [facility] Last Admin: 10/17/16 17:58 Dose: 5 mg - Labs Labs: 10/17/16 06:35 10/17/16 06:35 PT 11.1 SECONDS (9.7-12.2) 10/17/16 07:50 INR 1.0 10/17/16 07:50 APTT 33 SECONDS (21-34) 10/17/16 07:50 Assessment and Plan - Assessment and Plan (Free Text) Assessment: (1) Syncope Assessment and Plan: R/O Orthostatic hypotension, Structural diseases ECHO: Normal EF and no major valve issues cardiac enzymes negative Tilt and ECHO unremarkable Patient for cath tomorrow (2) CAD (coronary artery disease) Assessment and Plan: H/O CAD and stents as per the patient Stress test on Sunday Status: Acute
--- NOTE | 2016-10-18 07:24 | EEG ---
DATE: 10/17/2016 INTRODUCTION: This is a digitally recorded EEG monitoring using standard EEG montages. BACKGROUND RHYTHM: The EEG shows a background activity of 9 Hz alpha activity in parietooccipital re gion. The EEG activity is bilaterally symmetrical and synchronous. There is attenuation of the back ground activity on eye opening. ABNORMAL POTENTIALS: No spikes, sharp waves or focal slowing was seen. PHOTIC STIMULATION AND HYPERVENTILATION: Photic stimulation did not reveal any abnormality. Hyperve ntilation was not performed. IMPRESSION: Normal EEG. No epileptiform activity seen in this EEG recording. Raulaid Nicole Jiménez MD cc: [id number] TT: 10/17/2016 22:30:54 Confirmation # [id number] Dictation # [id number] mn
[2016-10-18 07:28] LABS: BASO % 0.5 % (0.0-2.0); EOS # 0.2 K/uL (0.0-0.7); EOS % 4.4 % (0.0-4.0); HEMATOCRIT 41.3 % (35.0-51.0); LYMPH # 1.2 K/uL (1.0-4.3); LYMPH % 32.5 % (20.0-40.0); MEAN CELL VOLUME 75.3 fL (80.0-94.0); MEAN CORPUSCULAR HEMOGLOBIN 23.6 pg (27.0-31.0); MEAN CORPUSCULAR HGB CONC 31.3 g/dL (33.0-37.0); MONO # 0.3 K/uL (0.0-0.8); MONO % 9.3 % (0.0-10.0); RED CELL DISTRIBUTION WIDTH 16.5 % (11.5-14.5); WHITE BLOOD COUNT 3.6 K/uL (4.8-10.8)
[2016-10-18 07:36] LABS: CHLORIDE 102 mmol/L (98-107)
[2016-10-18] MEDS: (Novolin R) Insulin Human Regular 100 units/ml vial SC SCH ×4 (07:36→22:35)
[2016-10-18 07:37] LABS: POTASSIUM 3.9 mmol/L (3.6-5.2); SODIUM 138 mmol/L (132-148)
[2016-10-18 07:39] LABS: GFR AFRICAN-AMERICAN > 60
[2016-10-18 07:40] LABS: ALKALINE PHOSPHATASE 52 U/L (38-126); ALT/SGPT 32 U/L (21-72); AST/SGOT 54 U/L (17-59); BILIRUBIN,TOTAL 0.7 mg/dL (0.2-1.3); BLOOD UREA NITROGEN 11 mg/dL (9-20); CALCIUM 7.8 mg/dl (8.6-10.4); CARBON DIOXIDE 26 mmol/L (22-30); GLUCOSE,RANDOM 169 mg/dL (75-110); TOTAL PROTEIN 6.5 g/dL (6.3-8.3)
--- NOTE | 2016-10-18 08:47 | CP.PCM.PN ---
Subjective - Date & Time of Evaluation Date of Evaluation: 10/18/16 Time of Evaluation: 08:45 - Subjective Subjective: Medicine Note- Dr. Garland's service Patient was seen and examined at bedside. Patient reports no acute complaints at this time. No events overnight. Scheduled for Cath this AM Objective - Vital Signs/Intake and Output Vital Signs (last 24 hours): Temp Pulse Resp BP Pulse Ox 98.1 F 64 18 167/82 H 94 L 10/18/16 07:10 10/18/16 07:10 10/18/16 07:10 10/18/16 07:10 10/18/16 07:10 Intake and Output: 10/18/16 10/18/16 06:59 18:59 Intake Total 1040 Output Total 3 Balance 1037 - Medications Medications: Current Medications Aspirin (Ecotrin) 81 mg PO DAILY [facility] Last Admin: 10/17/16 10:25 Dose: 81 mg Famotidine (Pepcid) 20 mg PO BID [facility] Last Admin: 10/17/16 17:57 Dose: 20 mg Azithromycin 500 mg/ Sodium (Chloride) 250 mls @ 167 mls/hr IVPB Q24H [facility] Last Admin: 10/17/16 10:27 Dose: 167 mls/hr Insulin Human Regular (Novolin R) 0 unit SC ACHS [facility] PRN Reason: Protocol Last Admin: 10/18/16 07:36 Dose: Not Given Isosorbide Dinitrate (Isordil) 5 mg PO BID [facility] Last Admin: 10/17/16 17:58 Dose: 5 mg - Labs Labs: 10/18/16 07:20 10/18/16 07:20 PT 11.1 SECONDS (9.7-12.2) 10/17/16 07:50 INR 1.0 10/17/16 07:50 APTT 33 SECONDS (21-34) 10/17/16 07:50 - Constitutional Appears: Non-toxic, No Acute Distress - Head Exam Head Exam: ATRAUMATIC, NORMAL INSPECTION, NORMOCEPHALIC - Eye Exam Pupil Exam: NORMAL ACCOMODATION, PERRL - ENT Exam ENT Exam: Mucous Membranes Moist - Respiratory Exam Respiratory Exam: Clear to Ausculation Bilateral, NORMAL BREATHING PATTERN. absent: Prolonged Expiratory Phase, Rales, Rhonchi, Wheezes, Stridor - Cardiovascular Exam Cardiovascular Exam: REGULAR RHYTHM, +S1, +S2 - GI/Abdominal Exam GI & Abdominal Exam: Soft, Normal Bowel Sounds. absent: Distended, Firm, Guarding, Tenderness, Diminished Bowel Sounds, Hypoactive Bowel Sounds - Extremities Exam Extremities Exam: Normal Capillary Refill, Normal Inspection - Neurological Exam Neurological Exam: Alert, Awake, Oriented x3 - Psychiatric Exam Psychiatric exam: Normal Affect, Normal Mood - Skin Skin Exam: Dry, Intact, Normal Color, Warm
[2016-10-18] MEDS ORDERED: Pneumococcal 23-Valent Vaccine IM ONE (10:00)
[2016-10-18] MEDS: Azithromycin 500 MG in Sodium Chloride 0.9% 250 ML IVPB SCH (10:35)
[2016-10-18] MEDS ORDERED: Midazolam 2 MG/2 ML VIAL ONE (12:25)
[2016-10-18] MEDS: Sodium Chloride 0.9% 1,000 ML IV SCH (17:49)
--- NOTE | 2016-10-18 18:21 | CP.PCM.PN ---
Subjective - Date & Time of Evaluation Date of Evaluation: 10/18/16 Time of Evaluation: 18:20 - Subjective Subjective: Patient s/p Cath Non obstructive coronaries Patent stents Normal EF Medical management Objective - Vital Signs/Intake and Output Vital Signs (last 24 hours): Temp Pulse Resp BP Pulse Ox 97.4 F L 84 20 146/81 97 10/18/16 15:07 10/18/16 15:07 10/18/16 15:07 10/18/16 15:07 10/18/16 15:07 Intake and Output: 10/18/16 10/18/16 06:59 18:59 Intake Total 1040 700 Output Total 3 600 Balance 1037 100 - Medications Medications: Current Medications Aspirin (Ecotrin) 81 mg PO DAILY [facility] Last Admin: 10/18/16 10:35 Dose: 81 mg Famotidine (Pepcid) 20 mg PO BID [facility] Last Admin: 10/18/16 17:45 Dose: 20 mg Azithromycin 500 mg/ Sodium (Chloride) 250 mls @ 167 mls/hr IVPB Q24H [facility] Last Admin: 10/18/16 10:35 Dose: 167 mls/hr Insulin Human Regular (Novolin R) 0 unit SC ACHS [facility] PRN Reason: Protocol Last Admin: 10/18/16 17:45 Dose: 2 unit Isosorbide Dinitrate (Isordil) 5 mg PO BID [facility] Last Admin: 10/18/16 17:45 Dose: 5 mg - Labs Labs: 10/18/16 07:20 10/18/16 07:20 PT 11.1 SECONDS (9.7-12.2) 10/17/16 07:50 INR 1.0 10/17/16 07:50 APTT 33 SECONDS (21-34) 10/17/16 07:50
[2016-10-19] MEDS: Sodium Chloride 0.9% 1,000 ML IV SCH ×3 (06:31→18:47)
[2016-10-19 06:46] LABS: BASO % 0.4 % (0.0-2.0); EOS # 0.2 K/uL (0.0-0.7); EOS % 3.8 % (0.0-4.0); HEMATOCRIT 42.4 % (35.0-51.0); LYMPH # 1.5 K/uL (1.0-4.3); LYMPH % 26.5 % (20.0-40.0); MEAN CELL VOLUME 75.2 fL (80.0-94.0); MEAN CORPUSCULAR HEMOGLOBIN 23.6 pg (27.0-31.0); MEAN CORPUSCULAR HGB CONC 31.4 g/dL (33.0-37.0); MEAN PLATELET VOLUME 8.3 fL (7.2-11.7); MONO # 0.5 K/uL (0.0-0.8); MONO % 8.9 % (0.0-10.0); NRBC % 0.1 % (0.0-2.0); RED CELL DISTRIBUTION WIDTH 16.3 % (11.5-14.5); WHITE BLOOD COUNT 5.8 K/uL (4.8-10.8)
[2016-10-19] MEDS ORDERED: Sodium Chloride 0.9% 250 ML IV ONE (06:53)
[2016-10-19 07:01] LABS: CHLORIDE 102 mmol/L (98-107); POTASSIUM 3.4 mmol/L (3.6-5.2); SODIUM 136 mmol/L (132-148)
[2016-10-19 07:03] LABS: ALB/GLOB RATIO 0.9 (1.0-2.1); ALKALINE PHOSPHATASE 59 U/L (38-126); ALT/SGPT 35 U/L (21-72); AST/SGOT 38 U/L (17-59); BILIRUBIN,TOTAL 1.3 mg/dL (0.2-1.3); BLOOD UREA NITROGEN 14 mg/dL (9-20); CALCIUM 7.8 mg/dl (8.6-10.4); CARBON DIOXIDE 25 mmol/L (22-30); GFR AFRICAN-AMERICAN > 60; GLUCOSE,RANDOM 177 mg/dL (75-110); TOTAL PROTEIN 6.5 g/dL (6.3-8.3)
--- NOTE | 2016-10-19 07:45 | CP.PCM.PN ---
Subjective - Date & Time of Evaluation Date of Evaluation: 10/19/16 Time of Evaluation: 06:30 - Subjective Subjective: Medicine Note- Dr. Garland's service Patient was seen and examined at bedside. This morning, around 6:30am, patient started complaining of chest pressure/ chest pain. House resident was called, ordered EKG, which showed SVT,150bpm/min on telemetry. Rapid response was called , initial 116/75, 97% O2 on RA, HR 98. ICU attending called. Patients repeat BP was 84/45 followed by 64/56. Patient continued to complain of chest pressure Patient was given Adenosine 6mg followed by Cardizem 5mg IVP, and fluids were open wide . SVT broke, HR returned to 80s, BP normalized.Patient started on Lopressor 25mg PO BID, first dose now. Called Dr. Robledo who recommended consulting Dr. Ruiz. Called Dr. Orozco, discussed case, recommended making NPO for now for possible transfer to [place] for SVT evaluation. Azithromycin was stopped Objective - Vital Signs/Intake and Output Vital Signs (last 24 hours): Temp Pulse Resp BP Pulse Ox 97.9 F 79 20 132/65 96 10/18/16 23:40 10/19/16 04:24 10/18/16 23:40 10/19/16 07:01 10/18/16 23:40 Intake and Output: 10/19/16 10/19/16 06:59 18:59 Intake Total 940 Output Total 700 Balance 240 - Medications Medications: Current Medications Aspirin (Ecotrin) 81 mg PO DAILY [facility] Last Admin: 10/18/16 10:35 Dose: 81 mg Famotidine (Pepcid) 20 mg PO BID [facility] Last Admin: 10/18/16 17:45 Dose: 20 mg Sodium Chloride (Sodium Chloride 0.9%) 1,000 mls @ 100 mls/hr IV .Q10H [facility] Insulin Human Regular (Novolin R) 0 unit SC ACHS [facility] PRN Reason: Protocol Last Admin: 10/18/16 22:35 Dose: Not Given Isosorbide Dinitrate (Isordil) 5 mg PO BID [facility] Last Admin: 10/18/16 17:45 Dose: 5 mg Metoprolol Tartrate (Lopressor) 25 mg PO BID [facility] - Labs Labs: 10/19/16 06:35 04/20/17 06:35 PT 11.1 SECONDS (9.7-12.2) 10/17/16 07:50 INR 1.0 10/17/16 07:50 APTT 33 SECONDS (21-34) 10/17/16 07:50 - Constitutional Appears: Non-toxic, No Acute Distress - Head Exam Head Exam: ATRAUMATIC, NORMAL INSPECTION, NORMOCEPHALIC - Eye Exam Pupil Exam: NORMAL ACCOMODATION, PERRL - ENT Exam ENT Exam: Mucous Membranes Moist - Respiratory Exam Respiratory Exam: Clear to Ausculation Bilateral, NORMAL BREATHING PATTERN. absent: Rales, Rhonchi, Wheezes, Respiratory Distress - Cardiovascular Exam Cardiovascular Exam: REGULAR RHYTHM, +S1, +S2 - GI/Abdominal Exam GI & Abdominal Exam: Soft, Normal Bowel Sounds. absent: Tenderness, Diminished Bowel Sounds, Hypoactive Bowel Sounds - Extremities Exam Extremities Exam: Normal Capillary Refill, Normal Inspection - Neurological Exam Neurological Exam: Alert, Awake, Oriented x3 - Psychiatric Exam Psychiatric exam: Normal Affect, Normal Mood - Skin Skin Exam: Dry, Intact, Normal Color, Warm Assessment and Plan - Assessment and Plan (Free Text) Assessment: SVT consult- Dr. Orozco NPO except meds Per Dr. Orozco, will likely go to [place] for evaluation of SVT/ possible ablation Started on Lopressor 25mg PO BID Syncope Consult Cardio- Dr. Robledo- NPO after MN for cardiac cath today (hx of multiple stents) Consult Neuro- Dr. Bonita Jiménez Stress test unremarkable Tilt Table test unremarkable Echo- 10/13/16- LV function normal , EF normal. mild aortic and tricuspid regurg. 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 Moderate generalized volume loss. Abnormal CXR CXR- 10/13/16- Poor inspiration with low lung volumes, mild crowded bronchovascular markings and mild bibasilar atelectasis. Stopped Azithromycin 500mg IVPB Q24h (started 10/14/16) Diabetes RISS accucheck Prophylactic Measure Heparin 5000U SC Q12h Pepcid 20mg PO BID SCDs PT Eval
[2016-10-19 07:46] LABS: MAGNESIUM 1.6 mg/dL (1.6-2.3)
--- NOTE | 2016-10-19 08:20 | CP.PCM.CON ---
<Samuel Diehl - Last Filed: 10/19/16 08:09> History of Present Illness - History of Present Illness History of Present Illness: Cardiology Consultation Note Dr. Orozco CC: Palpitations HPI: This is a 75 year old male with a PMH notable for epilepsy and syncope presenting for cardiac evaluation of chest discomfort 2/2 to palpitations. The patient notes that he had a "funny feeling" in his chest overnight. At that time, he was notes to by in SVT on telemetric monitoring. The patient was admitted to the hospital for a syncopal episode. The patient was previously evaluated in the quality control lab tech. The patient underwent a tilt table test which returned normal. The patient underwent cardiac catheterization with Dr. Robledo. The cath revealed non-obstructive coronary arteries. The patient also had a nuclear stress stress with myocardial perfusion imaging to follow. The study returned a normal myocardial perfusion and stress response. On echocardiographic evaluation, the patient has an EF of 72%. The patient on evaluation is not in SVT and denies all present cardiopulmonary complaints. The patient denies fever, chills, headache, chest pain, palpitations, shortness of breath, cough, abdominal pain, N/V/D/C, changes in bowel/bladder, and extremity paresthesias. PMH: Epilepsy (last seizure 6mo ago) and syncope Allergy: NKDA Surg: None Social: Denies tobacco/alcohol/illicit drugs Attending: Dr. Garland Review of Systems - Review of Systems All systems: reviewed and no additional remarkable complaints except - Constitutional Constitutional: absent: Chills, Fever, Headache - EENT Eyes: absent: Blurred Vision, Change in Vision Ears: absent: Tinnitus Nose/Mouth/Throat: absent: Nose Pain, Facial Pain, Neck Pain - Cardiovascular Cardiovascular: Chest Pain (resolved), Diaphoresis (resolved), Palpitations ( resolved), Rapid Heart Rate (resolved), Syncope (on admission ). absent: Dyspnea, Leg Edema, Radiating Pain - Respiratory Respiratory: absent: Cough, Dyspnea on Exertion - Gastrointestinal Gastrointestinal: absent: Abdominal Pain, Constipation, Diarrhea, Nausea, Vomiting - Genitourinary Genitourinary: absent: Change in Urinary Stream, Difficulty Urinating - Integumentary Integumentary: absent: Lesions, Rash - Neurological Neurological: Syncope. absent: Lack of Coordination, Sensory Deficit, Tingling , Tremor, Vertigo, Weakness, Other Visual Disturbances - Endocrine Endocrine: absent: Cold Intolorance, Heat Intolorance Past Patient History - Past Medical History & Family History Past Medical History?: Yes - Past Social History Smoking Status: Former Smoker - CARDIAC Hx Cardiac Disorders: No - PULMONARY Hx Respiratory Disorders: No - NEUROLOGICAL Hx Neurological Disorder: Yes Hx Seizures: Yes (x 1 6 months ago) - HEENT Hx HEENT Problems: No - RENAL Hx Chronic Kidney Disease: No - ENDOCRINE/METABOLIC Hx Endocrine Disorders: Yes Hx Diabetes Mellitus Type 2: Yes - HEMATOLOGICAL/ONCOLOGICAL Hx Blood Disorders: No - INTEGUMENTARY Hx Dermatological Problems: Yes Other/Comment: several skin tags on back - MUSCULOSKELETAL/RHEUMATOLOGICAL Hx Musculoskeletal Disorders: Yes Hx Falls: Yes (prev. syncopal episodes) Other/Comment: L knee pain when ambulating - GASTROINTESTINAL Hx Gastrointestinal Disorders: No - GENITOURINARY/GYNECOLOGICAL Hx Genitourinary Disorders: No - PSYCHIATRIC Hx Psychophysiologic Disorder: No Hx Substance Use: No - SURGICAL HISTORY Hx Surgeries: Yes Hx Cardiac Catheterization: Yes (3 stents) - ANESTHESIA Hx Anesthesia: No Meds Allergies/Adverse Reactions: Allergies Allergy/AdvReac Type Severity Reaction Status Date / Time No Known Allergies Allergy Verified 10/13/16 10:35 - Medications Medications: Current Medications Aspirin (Ecotrin) 81 mg PO DAILY [facility] Last Admin: 10/18/16 10:35 Dose: 81 mg Famotidine (Pepcid) 20 mg PO BID [facility] Last Admin: 10/18/16 17:45 Dose: 20 mg Sodium Chloride (Sodium Chloride 0.9%) 1,000 mls @ 100 mls/hr IV .Q10H [facility] Insulin Human Regular (Novolin R) 0 unit SC ACHS [facility] PRN Reason: Protocol Last Admin: 10/18/16 22:35 Dose: Not Given Isosorbide Dinitrate (Isordil) 5 mg PO BID [facility] Last Admin: 10/18/16 17:45 Dose: 5 mg Metoprolol Tartrate (Lopressor) 25 mg PO BID [facility] Physical Exam - Constitutional Appears: Well, No Acute Distress - Head Exam Head Exam: ATRAUMATIC, NORMAL INSPECTION, NORMOCEPHALIC - Eye Exam Eye Exam: EOMI, Normal appearance Pupil Exam: NORMAL ACCOMODATION - ENT Exam ENT Exam: Mucous Membranes Moist - Neck Exam Neck exam: Positive for: Full Rom, Normal Inspection. Negative for: Lymphadenopathy - Respiratory Exam Respiratory Exam: Clear to Auscultation Bilateral, NORMAL BREATHING PATTERN. absent: Rales, Rhonchi, Wheezes - Cardiovascular Exam Cardiovascular Exam: REGULAR RHYTHM, RRR, +S1, +S2. absent: Bradycardia, Tachycardia, Clicks, Diastolic murmur, Gallop, Irregular Rhythm, +S4, Systolic Murmur - GI/Abdominal Exam GI & Abdominal Exam: Normal Bowel Sounds, Soft. absent: Distended, Firm, Guarding, Tenderness - Extremities Exam Extremities exam: Positive for: normal capillary refill, normal inspection, pedal pulses present. Negative for: pedal edema, tenderness - Neurological Exam Neurological exam: Alert, CN II-XII Intact, Oriented x3 - Skin Skin Exam: Dry, Intact, Normal Color, Warm Results - Vital Signs Recent Vital Signs: Last Vital Signs Temp 98.2 F 10/19/16 06:00 Pulse 153 H 10/19/16 06:00 Resp 20 10/19/16 06:00 BP 64/45 L 10/19/16 07:56 Pulse Ox 97 10/19/16 06:00 - Labs Result Diagrams: 10/19/16 06:35 10/19/16 06:35 Labs: Laboratory Results - last 24 hr 10/18/16 10/18/16 10/18/16 11:34 16:21 21:42 WBC RBC Hgb Hct MCV MCH MCHC RDW Plt Count MPV Neut % (Auto) Lymph % (Auto) [place] % (Auto) Eos % (Auto) Baso % (Auto) Neut # Lymph # [place] # Eos # Baso # Sodium Potassium Chloride Carbon Dioxide Anion Gap BUN Creatinine Est GFR ( Amer) Est GFR (Non-Af Amer) POC Glucose (mg/dL) 184 H 218 H 243 H Random Glucose Calcium Phosphorus Magnesium Total Bilirubin AST ALT Alkaline Phosphatase Total Creatine Kinase CK-MB (Mass) Troponin I, Quant Total Protein Albumin Globulin Albumin/Globulin Ratio 10/19/16 10/19/16 06:35 06:51 WBC 5.8 D RBC 5.64 Hgb 13.3 Hct 42.4 MCV 75.2 L MCH 23.6 L MCHC 31.4 L RDW 16.3 H Plt Count 226 MPV 8.3 Neut % (Auto) 60.4 Lymph % (Auto) 26.5 [place] % (Auto) 8.9 Eos % (Auto) 3.8 Baso % (Auto) 0.4 Neut # 3.5 Lymph # 1.5 [place] # 0.5 Eos # 0.2 Baso # 0.0 Sodium 136 Potassium 3.4 L Chloride 102 Carbon Dioxide 25 Anion Gap 12 BUN 14 Creatinine 1.1 Est GFR ( Amer) > 60 Est GFR (Non-Af Amer) > 60 POC Glucose (mg/dL) 193 H Random Glucose 177 H Calcium 7.8 L Phosphorus 3.0 Magnesium 1.6 Total Bilirubin 1.3 AST 38 ALT 35 Alkaline Phosphatase 59 Total Creatine Kinase 36 L CK-MB (Mass) 0.87 Troponin I, Quant 0.0420 Total Protein 6.5 Albumin 3.1 L Globulin 3.4 Albumin/Globulin Ratio 0.9 L Assessment & Plan (1) SVT (supraventricular tachycardia) Assessment and Plan: Patient for transfer to [place] for Ablation Emtala form in chart Early AM rhythm strip: 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 Pam Diehl PGY1 Status: Acute - Date & Time Date: 10/19/16 Time: 08:33 <Martinez Orozco - Last Filed: 10/19/16 09:28> Meds - Medications Medications: Current Medications Aspirin (Ecotrin) 81 mg PO DAILY [facility] Last Admin: 10/18/16 10:35 Dose: 81 mg Famotidine (Pepcid) 20 mg PO BID [facility] Last Admin: 10/18/16 17:45 Dose: 20 mg Sodium Chloride (Sodium Chloride 0.9%) 1,000 mls @ 100 mls/hr IV .Q10H [facility] Insulin Human Regular (Novolin R) 0 unit SC ACHS [facility] PRN Reason: Protocol Last Admin: 10/19/16 08:29 Dose: Not Given Isosorbide Dinitrate (Isordil) 5 mg PO BID [facility] Last Admin: 10/18/16 17:45 Dose: 5 mg Metoprolol Tartrate (Lopressor) 25 mg PO BID [facility] Results - Vital Signs Recent Vital Signs: Last Vital Signs Temp 98.3 F 10/19/16 07:05 Pulse 81 10/19/16 07:05 Resp 20 10/19/16 07:05 BP 145/68 10/19/16 07:05 Pulse Ox 97 10/19/16 07:05 - Labs Result Diagrams: 10/19/16 06:35 10/19/16 06:35 Labs: Laboratory Results - last 24 hr 10/18/16 10/18/16 10/18/16 11:34 16:21 21:42 WBC RBC Hgb Hct MCV MCH MCHC RDW Plt Count MPV Neut % (Auto) Lymph % (Auto) [place] % (Auto) Eos % (Auto) Baso % (Auto) Neut # Lymph # [place] # Eos # Baso # Sodium Potassium Chloride Carbon Dioxide Anion Gap BUN Creatinine Est GFR ( Amer) Est GFR (Non-Af Amer) POC Glucose (mg/dL) 184 H 218 H 243 H Random Glucose Calcium Phosphorus Magnesium Total Bilirubin AST ALT Alkaline Phosphatase Total Creatine Kinase CK-MB (Mass) Troponin I, Quant Total Protein Albumin Globulin Albumin/Globulin Ratio 10/19/16 10/19/16 06:35 06:51 WBC 5.8 D RBC 5.64 Hgb 13.3 Hct 42.4 MCV 75.2 L MCH 23.6 L MCHC 31.4 L RDW 16.3 H Plt Count 226 MPV 8.3 Neut % (Auto) 60.4 Lymph % (Auto) 26.5 [place] % (Auto) 8.9 Eos % (Auto) 3.8 Baso % (Auto) 0.4 Neut # 3.5 Lymph # 1.5 [place] # 0.5 Eos # 0.2 Baso # 0.0 Sodium 136 Potassium 3.4 L Chloride 102 Carbon Dioxide 25 Anion Gap 12 BUN 14 Creatinine 1.1 Est GFR ( Amer) > 60 Est GFR (Non-Af Amer) > 60 POC Glucose (mg/dL) 193 H Random Glucose 177 H Calcium 7.8 L Phosphorus 3.0 Magnesium 1.6 Total Bilirubin 1.3 AST 38 ALT 35 Alkaline Phosphatase 59 Total Creatine Kinase 36 L CK-MB (Mass) 0.87 Troponin I, Quant 0.0420 Total Protein 6.5 Albumin 3.1 L Globulin 3.4 Albumin/Globulin Ratio 0.9 L Attending/Attestation - Attestation I have personally seen and examined this patient.: Yes I have fully participated in the care of the patient.: Yes I have reviewed all pertinent clinical information: Yes Notes (Text): 10/19/16 09:28 Rapid respon se call for symptomatic svt adenosine given. Will transfer for ablation today
[2016-10-19] MEDS: (Novolin R) Insulin Human Regular 100 units/ml vial SC SCH ×4 (08:29→21:45)
[2016-10-19] MEDS ORDERED: Potassium Chloride 20 mEq ER Tab PO ONE (09:13)
--- NOTE | 2016-10-19 17:14 | RAD ---
HISTORY: SVT, chest pain COMPARISON: No prior. FINDINGS: LUNGS: No active pulmonary disease. PLEURA: No significant pleural effusion identified, no pneumothorax apparent. CARDIOVASCULAR: Defibrillator pad overlies the cardiac silhouette. There is a radiopaque line seen just to the left of parasternal border on which appears to extend from the abdomen terminating at the superior margin of the left cardiac silhouette. OSSEOUS STRUCTURES: No significant abnormalities. VISUALIZED UPPER ABDOMEN: Normal. OTHER FINDINGS: None. IMPRESSION: No focal consolidation. Defibrillator pad overlies the cardiac silhouette. There is a radiopaque line seen just to the left of parasternal border on which appears to extend from the abdomen terminating at the superior margin of the left cardiac silhouette.
--- NOTE | 2016-10-19 17:14 | CP.PCM.PN ---
Subjective - Date & Time of Evaluation Date of Evaluation: 10/19/16 Time of Evaluation: 16:26 - Subjective Subjective: House resident note for ROUNDHOUSE WORKER called at 1626 Pt S & E at bedside. Nursing called house resident re: pt tachycardic into the 140's, BP 131/92 approximately 10 minutes prior to ROUNDHOUSE WORKER. House resident contacted senior resident on [facility]'s service for evaluation. Senior resident got EKG - sinus tachycardia. ROUNDHOUSE WORKER called. BP 145/104, repeated 144/96. Pt asymptomatic, no chest pain, SOB, diaphoresis. Objective - Vital Signs/Intake and Output Vital Signs (last 24 hours): Temp Pulse Resp BP Pulse Ox 97.6 F 133 H 20 131/92 H 100 10/19/16 15:55 10/19/16 15:55 10/19/16 15:55 10/19/16 15:55 10/19/16 15:55 Intake and Output: 10/19/16 10/19/16 06:59 18:59 Intake Total 940 Output Total 700 Balance 240 - Medications Medications: Current Medications Aspirin (Ecotrin) 81 mg PO DAILY [facility] Last Admin: 10/19/16 10:20 Dose: 81 mg Diltiazem HCl (Cardizem) 60 mg PO Q6H [facility] Famotidine (Pepcid) 20 mg PO BID [facility] Last Admin: 10/19/16 10:21 Dose: 20 mg Sodium Chloride (Sodium Chloride 0.9%) 1,000 mls @ 100 mls/hr IV .Q10H [facility] Last Admin: 10/19/16 14:42 Dose: 100 mls/hr Insulin Human Regular (Novolin R) 0 unit SC ACHS [facility] PRN Reason: Protocol Last Admin: 10/19/16 14:42 Dose: Not Given Isosorbide Dinitrate (Isordil) 5 mg PO BID [facility] Last Admin: 10/19/16 10:25 Dose: 5 mg - Labs Labs: 10/19/16 06:35 10/19/16 06:35 PT 11.1 SECONDS (9.7-12.2) 10/17/16 07:50 INR 1.0 10/17/16 07:50 APTT 33 SECONDS (21-34) 10/17/16 07:50 - Constitutional Appears: Non-toxic, No Acute Distress - Head Exam Head Exam: ATRAUMATIC, NORMAL INSPECTION, NORMOCEPHALIC - Eye Exam Eye Exam: EOMI, Normal appearance - ENT Exam ENT Exam: Mucous Membranes Moist, Normal Exam - Neck Exam Neck Exam: Full ROM, Normal Inspection - Respiratory Exam Respiratory Exam: Clear to Ausculation Bilateral, NORMAL BREATHING PATTERN - Cardiovascular Exam Cardiovascular Exam: REGULAR RHYTHM, +S1, +S2 - GI/Abdominal Exam GI & Abdominal Exam: Soft, Normal Bowel Sounds. absent: Tenderness - Extremities Exam Extremities Exam: Normal Inspection - Neurological Exam Neurological Exam: Alert, Awake, Oriented x3 - Psychiatric Exam Psychiatric exam: Normal Affect, Normal Mood - Skin Skin Exam: Dry, Intact, Normal Color, Warm. absent: Diaphoretic Assessment and Plan - Assessment and Plan (Free Text) Assessment: Sinus Tachycardia Cardizem 10mg given- tachycardia resolved Repeat BP 163/80 HR 80 Initial EKG w/SVT Repeated EKG w/ CXR w/No focal consolidation.Defibrillator pad overlies the cardiac silhouette. There is a radiopaque line seen just to the left of parasternal border on which appears to extend from the abdomen terminating at the superior margin of the left cardiac silhouette. Per Sally Edouard, possible ICU eval, ok to start Cardizem 60mg QID Dr. Fang and Dr. Ochoa present during rapid.
--- NOTE | 2016-10-19 23:11 | CP.PCM.PN ---
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 Orozco appreciated Objective - Vital Signs/Intake and Output Vital Signs (last 24 hours): Temp Pulse Resp BP Pulse Ox 97.6 F 133 H 20 131/92 H 100 10/19/16 15:55 10/19/16 15:55 10/19/16 15:55 10/19/16 15:55 10/19/16 15:55 - Medications Medications: Current Medications Aspirin (Ecotrin) 81 mg PO DAILY [facility] Last Admin: 10/19/16 10:20 Dose: 81 mg Diltiazem HCl (Cardizem) 60 mg PO Q6H [facility] Last Admin: 10/19/16 21:45 Dose: 60 mg Famotidine (Pepcid) 20 mg PO BID [facility] Last Admin: 10/19/16 18:41 Dose: 20 mg Sodium Chloride (Sodium Chloride 0.9%) 1,000 mls @ 100 mls/hr IV .Q10H [facility] Last Admin: 10/19/16 18:47 Dose: 100 mls/hr Insulin Human Regular (Novolin R) 0 unit SC ACHS [facility] PRN Reason: Protocol Last Admin: 10/19/16 21:45 Dose: Not Given Isosorbide Dinitrate (Isordil) 5 mg PO BID [facility] Last Admin: 10/19/16 18:40 Dose: 5 mg - Labs Labs: 10/19/16 06:35 10/19/16 06:35 PT 11.1 SECONDS (9.7-12.2) 10/17/16 07:50 INR 1.0 10/17/16 07:50 APTT 33 SECONDS (21-34) 10/17/16 07:50
[2016-10-20 01:52] VITALS: O2SAT 97
[2016-10-20] MEDS: Sodium Chloride 0.9% 1,000 ML IV SCH ×3 (03:00→16:06)
[2016-10-20 05:03] VITALS: RESP 18
[2016-10-20 07:37] LABS: CHLORIDE 102 mmol/L (98-107); SODIUM 139 mmol/L (132-148)
[2016-10-20 07:38] LABS: POTASSIUM 3.5 mmol/L (3.6-5.2)
[2016-10-20 07:39] LABS: GFR AFRICAN-AMERICAN > 60
[2016-10-20 07:40] LABS: ALB/GLOB RATIO 1.1 (1.0-2.1); ALKALINE PHOSPHATASE 56 U/L (38-126); ALT/SGPT 35 U/L (21-72); AST/SGOT 40 U/L (17-59); BILIRUBIN,TOTAL 0.6 mg/dL (0.2-1.3); BLOOD UREA NITROGEN 13 mg/dL (9-20); CARBON DIOXIDE 27 mmol/L (22-30); GLUCOSE,RANDOM 164 mg/dL (75-110); TOTAL PROTEIN 6.5 g/dL (6.3-8.3)
[2016-10-20 07:41] LABS: CALCIUM 8.1 mg/dl (8.6-10.4); MAGNESIUM 1.6 mg/dL (1.6-2.3)
[2016-10-20 07:42] LABS: BASO % 0.6 % (0.0-2.0); EOS # 0.3 K/uL (0.0-0.7); EOS % 6.8 % (0.0-4.0); HEMATOCRIT 42.6 % (35.0-51.0); LYMPH # 1.3 K/uL (1.0-4.3); LYMPH % 27.3 % (20.0-40.0); MEAN CELL VOLUME 75.7 fL (80.0-94.0); MEAN CORPUSCULAR HEMOGLOBIN 23.7 pg (27.0-31.0); MEAN CORPUSCULAR HGB CONC 31.3 g/dL (33.0-37.0); MEAN PLATELET VOLUME 7.9 fL (7.2-11.7); MONO # 0.5 K/uL (0.0-0.8); MONO % 10.1 % (0.0-10.0); NRBC % 0.3 % (0.0-2.0); RED CELL DISTRIBUTION WIDTH 17.2 % (11.5-14.5); WHITE BLOOD COUNT 4.9 K/uL (4.8-10.8)
[2016-10-20] MEDS: (Novolin R) Insulin Human Regular 100 units/ml vial SC SCH ×4 (08:20→22:51)
[2016-10-20 08:25] VITALS: BP 167/72; PULSE 73; TEMP 97.5
--- NOTE | 2016-10-20 10:44 | CP.PCM.PN ---
Subjective - Date & Time of Evaluation Date of Evaluation: 10/20/16 Time of Evaluation: 08:00 - Subjective Subjective: Medicine Progress Note- Dr. Garland's Service: Patient seen and examined at bedside this AM. Patient reports he has no chest pain, SOB, palpitations, diarrhea, constipation, fevers, chills. No acute events overnight as per nursing. Patient is ambulating to and from bathroom without difficulty. Objective - Vital Signs/Intake and Output Vital Signs (last 24 hours): Temp Pulse Resp BP Pulse Ox 97.5 F L 73 18 167/72 H 97 10/20/16 07:15 10/20/16 07:15 10/20/16 07:15 10/20/16 07:15 10/20/16 07:15 Intake and Output: 10/20/16 10/20/16 06:59 18:59 Intake Total 670 Output Total 1000 Balance -330 - Medications Medications: Current Medications Aspirin (Ecotrin) 81 mg PO DAILY [facility] Last Admin: 10/19/16 10:20 Dose: 81 mg Diltiazem HCl (Cardizem) 60 mg PO Q6H [facility] Last Admin: 10/20/16 04:59 Dose: 60 mg Famotidine (Pepcid) 20 mg PO BID [facility] Last Admin: 10/19/16 18:41 Dose: 20 mg Sodium Chloride (Sodium Chloride 0.9%) 1,000 mls @ 100 mls/hr IV .Q10H [facility] Last Admin: 10/20/16 04:58 Dose: 100 mls/hr Insulin Human Regular (Novolin R) 0 unit SC ACHS [facility] PRN Reason: Protocol Last Admin: 10/19/16 21:45 Dose: Not Given Isosorbide Dinitrate (Isordil) 5 mg PO BID [facility] Last Admin: 10/19/16 18:40 Dose: 5 mg - Labs Labs: 10/20/16 07:17 10/20/16 07:17 PT 11.1 SECONDS (9.7-12.2) 10/17/16 07:50 INR 1.0 10/17/16 07:50 APTT 33 SECONDS (21-34) 10/17/16 07:50 - Constitutional Appears: No Acute Distress - Head Exam Head Exam: NORMAL INSPECTION, NORMOCEPHALIC - Eye Exam Eye Exam: EOMI, Normal appearance - ENT Exam ENT Exam: Mucous Membranes Moist - Neck Exam Neck Exam: Full ROM, Normal Inspection - Respiratory Exam Respiratory Exam: Clear to Ausculation Bilateral, NORMAL BREATHING PATTERN - Cardiovascular Exam Cardiovascular Exam: REGULAR RHYTHM, +S1, +S2 - GI/Abdominal Exam GI & Abdominal Exam: Soft. absent: Distended, Tenderness - Back Exam Back Exam: CVA tenderness (R), NORMAL INSPECTION - Neurological Exam Neurological Exam: Alert, Awake, Oriented x3 - Psychiatric Exam Psychiatric exam: Normal Affect, Normal Mood - Skin Skin Exam: Normal Color, Warm Assessment and Plan - Assessment and Plan (Free Text) Assessment: 1) SVT consult- Dr. Orozco NPO except meds Per Dr. Orozco, will go to [place] for evaluation of SVT/ possible ablation today Continue Lopressor 25mg PO BID Continue Cardizem 60 mg PO Q6H 2) Syncope Consult Cardio- Dr. Robledo- NPO after MN for cardiac cath today (hx of multiple stents) Consult Neuro- Dr. Bonita Jiménez Stress test unremarkable Tilt Table test unremarkable Echo- 10/13/16- LV function normal , EF normal. mild aortic and tricuspid regurg. Asa 81mg PO Daily Isordil 5mg PO BID NS@ 100 cc/hr Carotid Dopplers- negative Head CT- Encephalomalacia within the left basal ganglia/caudate nucleus Brain MRI- No acute intracranial hemorrhage or infarct. 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 Moderate generalized volume loss. 3) Abnormal CXR CXR- 10/13/16- Poor inspiration with low lung volumes, mild crowded bronchovascular markings and mild bibasilar atelectasis. Stopped Azithromycin 500mg IVPB Q24h (started 10/14/16) 4) Diabetes RISS accucheck 5) Prophylactic Measure Pepcid 20mg PO BID SCDs PT Eval All management as per Dr. Garland
--- NOTE | 2016-10-20 11:46 | CARD ---
APPROVED REPORT EKG Measurement Heart [id number] <Conclusion> Supraventricular tachycardia Marked ST abnormality, possible inferior subendocardial injury Marked ST abnormality, possible anterior subendocardial injury Abnormal ECG
[2016-10-20] MEDS ORDERED: Potassium Chloride 20 mEq ER Tab PO ONE (14:10)
--- NOTE | 2016-10-20 22:48 | CP.PCM.PN ---
Subjective - Date & Time of Evaluation Date of Evaluation: 10/20/16 Time of Evaluation: 06:30 - Subjective Subjective: Patient comfortable For SVT ablation at [facility] today Objective - Vital Signs/Intake and Output Vital Signs (last 24 hours): Temp Pulse Resp BP Pulse Ox 97.5 F L 73 18 167/72 H 97 10/20/16 07:15 10/20/16 07:15 10/20/16 07:15 10/20/16 07:15 10/20/16 07:15 - Medications Medications: Current Medications Aspirin (Ecotrin) 81 mg PO DAILY [facility] Last Admin: 10/20/16 16:04 Dose: Not Given Diltiazem HCl (Cardizem) 60 mg PO Q6H [facility] Last Admin: 10/20/16 20:14 Dose: Not Given Famotidine (Pepcid) 20 mg PO BID [facility] Last Admin: 10/20/16 20:15 Dose: Not Given Sodium Chloride (Sodium Chloride 0.9%) 1,000 mls @ 100 mls/hr IV .Q10H [facility] Last Admin: 10/20/16 16:06 Dose: Not Given Insulin Human Regular (Novolin R) 0 unit SC ACHS [facility] PRN Reason: Protocol Last Admin: 10/20/16 20:15 Dose: Not Given Isosorbide Dinitrate (Isordil) 5 mg PO BID [facility] Last Admin: 10/20/16 20:15 Dose: Not Given - Labs Labs: 10/20/16 07:17 10/20/16 07:17 PT 11.1 SECONDS (9.7-12.2) 10/17/16 07:50 INR 1.0 10/17/16 07:50 APTT 33 SECONDS (21-34) 10/17/16 07:50
--- NOTE | 2016-10-21 14:35 | CARD ---
APPROVED REPORT EKG Measurement Heart [id number] CA [id number] <Conclusion> Poor data quality, interpretation may be adversely affected Normal sinus rhythm Normal ECG
--- NOTE | 2016-11-17 11:19 | CARD ---
APPROVED REPORT EKG Measurement Heart [id number] NE [id number] <Conclusion> Sinus rhythm with 1st degree AV block Nonspecific T wave abnormality Abnormal ECG
--- NOTE | 2016-11-17 11:19 | CARD ---
APPROVED REPORT EKG Measurement Heart [id number] <Conclusion> Supraventricular tachycardia Marked ST abnormality, possible inferior subendocardial injury Abnormal ECG
--- NOTE | 2016-11-20 07:02 | CARDCATH ---
PROCEDURE DATE: 10/18/2016 PROCEDURES: 1. Left heart catheterization. 2. Coronary angiogram. CLINICAL INDICATIONS: 1. Syncope. 2. History of coronary artery disease status post stents. 3. Hypertension. 4. Hyperlipidemia. REFERRING PHYSICIAN: Dr. Yunior Luna. PERFORMING PHYSICIAN: Dr. Harish Robledo. PROCEDURE: After informed consent, patient was prepped and draped in the usual sterile fashion. 2% lidocaine was given in the right groin for local anesthesia. Using micropuncture technique, 6-Uzbek sheath was introduced into right common femoral artery. Using the usual diagnostic catheter, left h eart catheterization and coronary angiogram was performed. The patient tolerated the procedure well. FINDINGS: 1. Left main coronary artery is patent. 2. Prior LAD stent is patent. However, distal LAD has a 50% narrowing which is nonobstructive. Mary gonal branches are patent. 3. Left circumflex and obtuse marginal branches are patent. 4. Right coronary artery is dominant and patent. Prior stents are patent. 5. LV ejection fraction is 65%. No wall motion abnormalities. EDP is 20. No gradient across the a ortic valve. IMPRESSION: 1. Nonobstructive coronaries. Distal LAD has a 50% nonobstructive lesion. 2. Prior stents are patent. 3. Normal left ventricular systolic function. Harish Robledo MD cc: [id number] TT: 11/18/2016 19:37:00 marivel
--- NOTE | 2016-11-20 07:40 | DS ---
The patient admitted to the hospital with syncopal episode, recurrent. The patient got bedrest, supp ortive care. The patient had runs of cardiac arrhythmia. The patient had ablation done in [facility]. Yunior Luna MD cc: [id number] TT: 11/18/2016 13:26:59 tn
== END 2016-10-20 10:30 | disposition short-term general hospital (02) | DRG 287 ==
LOC: C.ER 10:29 → C.9E 13:45 → C.6T 14:22 → OBSVTOIN 10-16 09:20
PROVIDERS: ADMIT Internal Medicine Pulmonary Disease; ATTEND Internal Medicine Pulmonary Disease
PROC: 4A02XFZ Measurement of Cardiac Rhythm, External Approach (ICD-10-PCS; 2016-10-16)
PROC: 4A03XB1 Measurement of Arterial Pressure, Peripheral, External Approach (ICD-10-PCS; 2016-10-16)
PROC: 4A023N7 Measurement of Cardiac Sampling and Pressure, Left Heart, Percutaneous Approach (ICD-10-PCS; principal; 2016-10-18)
PROC: B205YZZ Plain Radiography of Left Heart using Other Contrast (ICD-10-PCS; 2016-10-18)
PROC: B201YZZ Plain Radiography of Multiple Coronary Arteries using Other Contrast (ICD-10-PCS; 2016-10-18)
DX: R55 Syncope and collapse (principal); E11.9 Type 2 diabetes mellitus without complications; G40.909 Epilepsy, unspecified, not intractable, without status epilepticus; I47.1 Supraventricular tachycardia; I25.10 Atherosclerotic heart disease of native coronary artery without angina pectoris; Z79.4 Long term (current) use of insulin; I49.9 Cardiac arrhythmia, unspecified; Z87.891 Personal history of nicotine dependence; M25.562 Pain in left knee; Z95.5 Presence of coronary angioplasty implant and graft